=== PATIENT | female | born 1965 | race Caucasian/White ===

== ENCOUNTER 2024-03-02 06:10 | Emergency (ER) | payer BC ==
[2024-03-02] MEDS: cloNIDine 0.1 MG Tab PO ONE (07:07)
[2024-03-02 07:17] LABS: BASOPHILS ABSOLUTE AUTO 0.03 K/uL (0.00-0.20); BASOPHILS PERCENT AUTO 0.3 % (0.0-2.0); EOSINOPHILS ABSOLUTE AUTO 0.13 K/uL (0.00-0.50); EOSINOPHILS PERCENT AUTO 1.1 % (0.0-5.0); HEMATOCRIT 44.6 % (34.0-46.0); HEMOGLOBIN 15.2 g/dL (11.7-15.5); LYMPHOCYTES ABSOLUTE AUTO 2.06 K/uL (0.50-3.50); LYMPHOCYTES PERCENT AUTO 17.6 % (10.0-50.0); MEAN CORPUSCULAR HEMOGLOBIN 28.7 pg (28.2-33.3); MEAN CORPUSCULAR HGB CONC 34.1 g/dL (31.7-36.0); MEAN CORPUSCULAR VOLUME 84.2 fL (84.0-98.0); MONOCYTES ABSOLUTE AUTO 0.63 K/uL (0.00-1.00); MONOCYTES PERCENT AUTO 5.4 % (2.0-14.0); NEUTROPHILS ABSOLUTE AUTO 8.88 K/uL (1.40-7.00); NEUTROPHILS PERCENT AUTO 75.6 % (45.0-80.0); PLATELET COUNT,PLT 360 K/uL (150-350); RED CELL DISTRIBUTION WIDTH 14.2 % (11.2-14.1); WHITE BLOOD CELL COUNT,WBC 11.7 K/uL (4.0-10.2)
[2024-03-02 07:37] LABS: APPEARANCE,URINE SLIGHTLY CLOUDY; BILIRUBIN,URINE NEGATIVE (NEGATIVE); COLOR,URINE YELLOW; GLUCOSE,URINE NEGATIVE (NEGATIVE); KETONES,URINE NEGATIVE (NEGATIVE); LEUKOCYTE ESTERASE,URINE TRACE (NEGATIVE); NITRITE,URINE NEGATIVE (NEGATIVE); OCCULT BLOOD,URINE NEGATIVE (NEGATIVE); PH,URINE 7.5 (5.0-9.0); PROTEIN,URINE NEGATIVE (NEGATIVE); UROBILINOGEN,URINE 0.2 E.U./dL (0.2-1.0)
[2024-03-02 07:37] LABS: BILIRUBIN TOTAL 0.9 mg/dL (0.2-1.0); CALCIUM 9.1 mg/dL (8.5-10.1); CARBON DIOXIDE,CO2 31.5 mmol/L (21.0-32.0); CREATININE 0.85 mg/dL (0.51-1.17); EST CRCL DRUG DOSING (CG) 55.67 mL/min; POTASSIUM,K 3.5 mmol/L (3.5-5.1); PROTEIN TOTAL,TP 8.6 g/dL (6.4-8.2)
[2024-03-02 07:57] LABS: BACTERIA,URINE FEW /HPF (NONE TO FEW); EPITHELIAL CELLS,URINE FEW /LPF; RBC,URINE 0-5 /HPF
[2024-03-02] MEDS: Ondansetron 4 MG Tab.DIS PO ONE (08:01)
[2024-03-02] MEDS: Losartan 50 MG Tab PO ONE (08:07)
[2024-03-02] MEDS: Hydrochlorothiazide 25 MG Tab PO ONE (08:07)
[2024-03-02 08:49] VITALS: PULSE 62
[2024-03-02 09:02] VITALS: BP 178/93
== END 2024-03-02 09:40 | disposition home or self-care (01) ==
LOC: LL.ED 06:10
DX: I16.0 Hypertensive urgency (principal); I10 Essential (primary) hypertension; E66.9 Obesity, unspecified; Z68.32 Body mass index [BMI] 32.0-32.9, adult; Z88.1 Allergy status to other antibiotic agents; Z88.8 Allergy status to other drugs, medicaments and biological substances; Z79.899 Other long term (current) drug therapy; Z86.16 Personal history of COVID-19
CPT/HCPCS: 36415; 80053; 81001; 83735; 85025; 87086; 99284; A9270-GY

== ENCOUNTER 2024-03-19 13:13 | Emergency (ER) | payer BC ==
[2024-03-19] MEDS: LORazepam 1 MG Tab PO ONE (15:48)
[2024-03-19] MEDS: cloNIDine 0.1 MG Tab PO ONE (17:58)
== END 2024-03-19 18:10 | disposition home or self-care (01) ==
LOC: LL.ED 13:13
DX: I1A.0 Resistant hypertension (principal); F41.9 Anxiety disorder, unspecified; E66.9 Obesity, unspecified; Z86.16 Personal history of COVID-19; Z79.899 Other long term (current) drug therapy; Z88.1 Allergy status to other antibiotic agents; Z88.8 Allergy status to other drugs, medicaments and biological substances
CPT/HCPCS: 99283; 99284; A9270-GY